=== PATIENT | female | born 1985 | race Two or more races ===

== ENCOUNTER 2021-11-14 21:24 | Emergency (ER) | payer MEDICAID ==
[~2021-11-14] VITALS: Ht 165.1 cm; Wt 73.1 kg
[~2021-11-14 21:24] MED LIST: METO-292 PO; NORCO10T PO; TRAM50TA2 PO
[2021-11-14] MEDS ORDERED: HYDROcodone/acetaminophen 10/325mg tab PO ONE (22:10)
[2021-11-14 22:58] VITALS: BP 103/79
== END 2021-11-14 22:59 | disposition home or self-care (01) ==
LOC: ER 21:24
DX: S96.911A Strain of unspecified muscle and tendon at ankle and foot level, right foot, initial encounter (principal); M25.572 Pain in left ankle and joints of left foot; Z79.899 Other long term (current) drug therapy; W19.XXXA Unspecified fall, initial encounter; Y93.89 Activity, other specified; Y92.89 Other specified places as the place of occurrence of the external cause; Y99.8 Other external cause status
CPT/HCPCS: 29515; 73610; 99283

== ENCOUNTER 2024-12-27 14:55 | Emergency (ER) | payer MEDICAID ==
[~2024-12-27] VITALS: Ht 165.1 cm; Wt 81.7 kg
[2024-12-27 15:59] LABS: BILIRUBIN,URINE NEGATIVE (Neg); CLARITY,URINE CLOUDY (Clear); COLOR,URINE STRAW (Yellow); GLUCOSE, URINE NEGATIVE (Neg); KETONES,URINE NEGATIVE (Neg); LEUKOCYTE ESTERASE ,URINE MODERATE (Neg); NITRITES, URINE NEGATIVE (Neg); OCCULT BLOOD,URINE LARGE (Neg); PROTEIN,URINE 30 mg/dl (Neg); UROBILINOGEN,URINE 0.2 E.U/dL (0.2-1.0)
[2024-12-27 16:00] LABS: URINE HCG NEGATIVE (NEG)
[2024-12-27 16:09] LABS: UA COLLECTION TYPE CLN CATCH MIDSTREAM
[2024-12-27 16:11] LABS: RBC,URINE TNTC /HPF (0-2); WBC,URINE 30-50 /HPF (0-4)
[2024-12-27 16:12] LABS: AMORPHOUS URATES 1+; BACTERIA,URINE 2+ /HPF (Neg); SQUAMOUS EPITHELIAL CELL,UR FEW /LPF (FEW)
[2024-12-27] MEDS ORDERED: CEFU500T66 PO (16:26)
[2024-12-27] MEDS ORDERED: PHEN-786 PO (16:26)
[2024-12-27] MEDS: phenazopyridine 100mg tablet PO ONE (16:38)
[2024-12-27] MEDS: cefuroxime axetil 250mg tablet PO ONE (16:38)
[2024-12-27] MEDS: acetaminophen 325mg tablet PO ONE (16:39)
[2024-12-27 16:49] VITALS: BP 120/64; PULSE 64; RESP 16; TEMP 97.2; O2SAT 98
== END 2024-12-27 16:50 | disposition home or self-care (01) ==
LOC: ER 14:55
DX: N39.0 Urinary tract infection, site not specified (principal)
CPT/HCPCS: 81001; 81025; 87088; 99284